=== PATIENT | female | born 1950 ===

== ENCOUNTER → 2017-06-21 | Outpatient (CLI) | payer OTHER | END | disposition home or self-care (01) | LOC: OFIC 805 06-10 09:15 → SONOGRAMA 10:47 → OFIC 805 07-01 09:00 | DX: M65.872 Other synovitis and tenosynovitis, left ankle and foot (principal); M72.2 Plantar fascial fibromatosis ==

== ENCOUNTER 2017-07-01 07:54 | Outpatient (CLI) | payer OTHER ==
[~2017-07-01] VITALS: Ht 152.4 cm; Wt 83.9 kg
== END 2017-07-01 08:15 | disposition home or self-care (01) ==
LOC: OFIC 805 07:54
DX: H90.3 Sensorineural hearing loss, bilateral (principal); H61.23 Impacted cerumen, bilateral; H92.01 Otalgia, right ear; M26.601 Right temporomandibular joint disorder, unspecified; J31.0 Chronic rhinitis

== ENCOUNTER 2017-07-22 09:01 | Outpatient (CLI) | payer OTHER ==
[~2017-07-22] VITALS: Ht 152.4 cm; Wt 83.9 kg
== END 2017-07-22 09:15 | disposition home or self-care (01) ==
LOC: OFIC 805 09:01
DX: H90.3 Sensorineural hearing loss, bilateral (principal); M26.69 Other specified disorders of temporomandibular joint; H92.01 Otalgia, right ear; J34.2 Deviated nasal septum; J32.8 Other chronic sinusitis